=== PATIENT | male | born 1995 | race Caucasian/White ===

== ENCOUNTER → 2017-05-03 | Outpatient (CLI) | payer BC ==
[~2017-05-03] MED LIST: SERT-234 PO
[2017-05-03 09:05] LABS: DAYS OF ABSTINENCE 5; METHOD OF COLLECTION MASTURBATION; SEMEN TIME OF COLLECTION 830; TYPE OF SPECIMEN CONTAINER CUP
[2017-05-03 09:06] LABS: COLLECTION PROBLEM NO; SEMEN COLOR GRAY OR GRAY-WHITE (GRY/GRYWHTE); TRANSPORT PROBLEM NO
[2017-05-03 09:26] LABS: SPERM VIABILITY STAIN NOT INDICATED % (>58%)
[2017-05-03 14:05] LABS: SPERM MORPHOLOGY NO SPERM SEEN
== END | disposition home or self-care (01) ==
LOC: C.LAB 08:26
PROVIDERS: ATTEND Obstetrics & Gynecology
DX: N46.9 Male infertility, unspecified (principal)

== ENCOUNTER → 2017-10-13 | Outpatient (CLI) | payer BC | END | disposition home or self-care (01) | LOC: C.LAB 17:22 | PROVIDERS: ATTEND Specialist | DX: Z11.3 Encounter for screening for infections with a predominantly sexual mode of transmission (principal); Z11.4 Encounter for screening for human immunodeficiency virus [HIV]; Z11.59 Encounter for screening for other viral diseases ==

== ENCOUNTER 2017-11-05 11:49 | Emergency (ER) | payer BC ==
[~2017-11-05] VITALS: Ht 182.9 cm; Wt 101.0 kg
[2017-11-05 11:51] VITALS: Ht 182.9 cm; Wt 101.0 kg
[2017-11-05] MEDS ORDERED: BUPIVACAINE 0.5 % 5 MG/1 ML MPF 30ML VIAL INFIL ONE (12:15)
[2017-11-05] MEDS ORDERED: LIDOCAINE 1% BUFFERED INJ 20 ML VIAL INFIL ONE (12:15)
--- NOTE | 2017-11-05 12:21 | DIAGNOSTIC IMAGING REPORT ---
R FINGER(S) MIN 2 VIEWS ROUTINE CLINICAL HISTORY: 21 years-old Male presenting with pain, third finger caught in door . TECHNIQUE: Frontal, oblique, and lateral views of the right third finger were obtained. COMPARISON: None. FINDINGS: Nondisplaced transversely oriented fracture of the tuft of the distal phalanx of the third finger. This appears mildly comminuted. No additional fracture. No malalignment. No significant soft tissue abnormality. IMPRESSION: Mildly comminuted fracture of the tuft of the distal phalanx of the right third finger. Electronically signed by: Jourdan Bravo M.D. 11/05/2017 12:20 PM Dictated Date/Time: 11/05/2017 12:19 PM
[2017-11-05] MEDS ORDERED: CEPH500C PO (12:39)
--- NOTE | 2017-11-05 12:40 | EMERGENCY ROOM VISIT NOTE ---
ED Visit Note First contact with patient: 11:58 CHIEF COMPLAINT: Finger laceration HISTORY OF PRESENT ILLNESS: This 21-year-old male patient presents to the emergency department approximately one hour after cutting the finger nail and distal end of the right third finger. The patient states he was getting into the car, when he accidentally smashed his finger in the door. The patient states he believes after the initial injury he attempted to pull the finger out to remove it from between the door and frame. He states when he looked down, he noticed that the finger nail was broken, and suspected a fracture of the finger. The bleeding has not stopped. Denies weakness or numbness of the finger. The patient has full range of motion of the fingers. The patient rates the pain as throbbing and 5/10. The patient denies any other injuries. The patient's tetanus shot is up to date. REVIEW OF SYSTEMS: A 6 system review of systems was completed with positives and pertinent negatives listed in the HPI. ALLERGIES: Zithromax MEDICATIONS: None PMH: None SOCIAL HISTORY: The patient lives locally with family. He denies drug, alcohol , tobacco use. PHYSICAL EXAM: Vital Signs: Reviewed Nurse's notes, vital signs stable. GENERAL : This is a 21-year-old white male, in no acute distress, well developed, well nourished. SKIN: The fingernail of the right third finger is partially avulsed , however the base of the fingernail remains intact distal to the cuticle. There is a 1 cm long laceration on the Nail bed of the right middle finger through the nail. The edges gape apart with traction. There is no foreign material in the wound and it looks clean. There is moderate bleeding. No deep structures such as tendons, bones, or significant blood vessels are seen in the base of the wound. Extension and flexion of the finger is full and strong. Full range of motion of the wrist and other fingers. Capillary refill less than 2 seconds. Normal sensation to light and sharp touch. RADIOLOGY: R FINGER(S) MIN 2 VIEWS ROUTINE CLINICAL HISTORY: 21 years-old Male presenting with pain, third finger caught in door . TECHNIQUE: Frontal, oblique, and lateral views of the right third finger were obtained. COMPARISON: None. FINDINGS: Nondisplaced transversely oriented fracture of the tuft of the distal phalanx of the third finger. This appears mildly comminuted. No additional fracture. No malalignment. No significant soft tissue abnormality. IMPRESSION: Mildly comminuted fracture of the tuft of the distal phalanx of the right third finger. Electronically signed by: Jourdan Bravo M.D. 11/05/2017 12:20 PM Dictated Date/Time: 11/05/2017 12:19 PM EMERGENCY DEPARTMENT COURSE: I examined the patient. An X-ray of the right 3rd digit was performed. This was reviewed by myself and radiologist and was significant for a fracture of the distal tuft of the distal phalanx. Verbal consent was obtained to perform the procedure. Using sterile technique the wound was cleansed with Betadine. 6 ml of 1% buffered lidocaine with 0.5% bupivacaine was used to perform a digital block to anesthetize the patient. The area was sterilely draped. Once the patient was anesthetized, the wound was copiously irrigated under pressure with 1.5L sterile saline. The distal aspect of the fingernail was removed from the nail bed. The wound was explored. The laceration was repaired using 3 subcuticular interrupted 5-0 Vicryl sutures. The distal fingernail was replaced over the nail bed and tacked down with 2 simple 4-0 Nylon sutures. The proximal edge of the nail was glued to the proximal portion of nail which remained in tact with 3 layers of Dermabond. The patient tolerated the procedure well. Hemostasis was achieved. The area was cleaned with sterile saline and dressed with xeroform and bandage. The patient was placed in a cage splint. The patient was encouraged multiple times to follow-up with orthopedics due to the open fracture and complicated laceration of the nail bed. He states he understands and will call first thing Tuesday morning. The patient was discharged home in good condition and encouraged to return for concerning symptoms. I did contact Dr. Kumar after the patient was discharged to discuss care and follow-up. He states the patient is to contact the office on Tuesday to schedule follow-up. I attest that I have personally reviewed the patient's current medication list. Patient was found to have normal blood pressure on screening and does not require follow-up. DIFFERENTIAL DIAGNOSIS: Laceration, contusion, fracture, open fracture, avulsion , and others DIAGNOSIS: Open fracture of the distal phalanx of the 3rd digit of the right hand, laceration of the nail bed of the 3rd digit of the right hand Problem List Medical Problems: (1) Brachial Plexus Injury Status: Resolved (2) Head Injury, Nos Status: Resolved (3) Open Wound Of Finger Status: Resolved Current/Historical Medications Scheduled Cephalexin Monohydrate (Keflex), 500 MG PO QID Allergies Coded Allergies: Azithromycin (Unverified Allergy, Unknown, ., 11/05/17) Vital Signs Date Time Temp Pulse Resp B/P (MAP) Pulse Ox O2 Delivery O2 Flow Rate FiO2 11/05/17 13:44 37.1 69 16 149/74 98 11/05/17 11:51 37.1 78 16 203/127 97 Room Air Departure Information Impression Primary Impression: Fracture of distal phalanx of right middle finger Additional Impression: Nailbed laceration, finger Dispostion Home / Self-Care Condition GOOD Prescriptions Cephalexin Monohydrate (Keflex) 500 Mg Cap 500 MG PO QID for 10 Days, #40 CAP Prov: Fidelina Vazquez, [place] 11/05/17 Referrals Sunil Curry M.D. (PCP) Twin Kumar D.O. Patient Instructions ED Fx Finger Open, ED Laceration Hand, [facility] Additional Instructions You were seen in the ED today for an open fracture of the distal phalanx of the right 3rd finger with nailbed laceration. This was repaired, however, it is imperative that you follow-up with orthopedics. You have received 2 sutures tacking down your fingernail. These sutures are NOT dissolvable and WILL need to be removed by a health care provider in 10 days. You can return to the Emergency Department or contact your Primary Care Provider to have the sutures removed. You have received 3 absorbable sutures under the fingernail in the nail bed which will not need to be removed. Proper wound care is essential for adequate wound healing and infection prevention. You can shower and clean the wound with soap and water. Do not scour over the wound, pat dry with a towel. Do not submerse the wound (i.e. bathe or dish wash) until the sutures have been removed. You can use an antibiotic ointment with a dressing over the wound for the next 3-4 days. After this time you may leave the wound dry and open to the air. If crust develops over the wound you can use a Q-tip to apply a 1:1 peroxide:water solution to clean the wound. Look for signs of infection of the wound including: increased pain, swelling, foul discharge, streaking, or increased temperature. If any of these are noticed you should return to the Emergency Department for further assessment and treatment. As with any laceration you may have received nerve damage to the surrounding tissues. This damage may or may not be permanent. Ibuprofen(Motrin, Advil) may be used for fever or pain. Use 600mg every six hours as needed. Take with food. Avoid using more than 2400mg in a 24 hour period. Do not use 2400mg per day for more than three consecutive days without physician direction. Prolonged inappropriate use can lead to stomach upset or ulcers. (AND/OR) Acetaminophen(Tylenol) may be used for fever or pain. Use 1000mg every six hours as needed. Avoid using more than 3000mg in a 24 hour period. Ice compresses for 20 minutes at a time four times daily for 2-3 days. Rest and elevate your injury. Do not get the splint wet. If your splint feels excessively tight, you have worsening pain, develop numbness or tingling, or your digits appear blue, loosen the wrap. Then reapply the wrap gently without removing the splint. If your symptoms are not quickly relieved return to the ER for re-evaluation. Return to the ER immediately for any numbness, tingling, severe pain, extreme swelling in the extremity or as needed. Call [facility], [phone], on Tuesday to arrange follow up for your injury. Advise them that you have an open fracture of your finger, with laceration to the nailbed, which was repaired, but that you need to follow-up. Follow-up with your primary care physician in 2 to 3 days for a recheck of your current condition. Problem Qualifiers Primary Impression: Fracture of distal phalanx of right middle finger Encounter type: initial encounter Fracture type: open Fracture alignment: nondisplaced Qualified Codes: S62.662B - Nondisplaced fracture of distal phalanx of right middle finger, initial encounter for open fracture Additional Impression: Nailbed laceration, finger Encounter type: initial encounter Qualified Codes: S61.319A - Laceration without foreign body of unspecified finger with damage to nail, initial encounter
[2017-11-05 13:44] VITALS: BP 149/74; PULSE 69; TEMP 37.1; O2SAT 98
== END 2017-11-05 13:46 | disposition home or self-care (01) ==
LOC: C.EDB 11:50 → C.EDD 13:46
DX: S62.662B Nondisplaced fracture of distal phalanx of right middle finger, initial encounter for open fracture (principal); S61.319A Laceration without foreign body of unspecified finger with damage to nail, initial encounter; W23.1XXA Caught, crushed, jammed, or pinched between stationary objects, initial encounter